=== PATIENT | female | born 1985 | race Caucasian/White ===

== ENCOUNTER 2018-10-09 17:44 | Observation (INO) | payer MEDICAID, SELFPAY ==
[2018-10-09 18:17] VITALS: BMI 35.1
[2018-10-09 18:18] VITALS: BP 122/73; PULSE 88; RESP 16; TEMP 36.6; O2SAT 98
--- NOTE | 2018-10-09 18:19 | PCM.HP.STD ---
Problem List (1) Acute opioid withdrawal Status: Acute (2) Heroin abuse Status: Acute (3) Nicotine dependence Status: Acute (4) Cellulitis of right hand Status: Acute (5) Depression Status: Chronic Qualifiers: Depression Type: unspecified Qualified Code(s): F32.9 - Major depressive disorder, single episode, unspecified History of Present Illness Date of Admission: 10/09/18 Chief Complaint: Acute opiate withdrawal The patient is a 33 year old F past medical history of anxiety/depression, borderline personality disorder, heroin dependence, nicotine dependence, comes in with complaints of acute opioid withdrawal with hot and cold flashes as well as nausea and vomiting. Patient admits to using 1 g of heroin IV every day, last used heroin on 10/08/18. Sent for medical stabilization and [facility]. Her admitting CINA score is 16. Patient admits to be having surgery of the right hand for possible abscess on 10/04/18. She has a wound dressing and she is on Augmentin p.o. She denied any fever or chills. Vitals on admission are T 98F, HR 88, BP 122/73, RR 16, SpO2 98% on room air. Past Medical History Past Medical History (Chronic Problems): Chronic Problems Depression (Chronic) Home Medications: Ambulatory Orders Medication Instructions Recorded Amitriptyline HCl 2 tab PO QHS 10/09/18 Amoxicillin/Potassium Clav [Amox 1 each PO Q8H 10/09/18 Tr-K Clv 875-125 mg Tab] Surgical History: - - recent surgery to right hand Psychiatric History: Anxiety, Depression [employer] History: No pertinent [employer] history Lives: With Family Smoking Status: Current every day smoker Tobacco Use: Cigarettes Alcohol: None Drugs: Heroin - *Family History Maternal History Items: No pertinent history Paternal History Items: No pertinent history Review of Systems Constitutional: Reports: Anorexia, Chills, Fever, Weakness, Fatigue. Denies: Night Sweats, Weight Change Eyes: Denies: Blurred vision, Cataracts, Conjunctivae Inflammation, Pain, Redness, Vision Change HEENT: Denies: Difficulty Hearing, Difficulty Swallowing, Head Aches, Hearing Changes, Sinus Congestion, Sinus Drainage, Sore Throat Cardiovascular: Denies: Chest Pain, Claudication, Orthopnea, Palpitations, Paroxysmal Noc. Dyspnea Respiratory: Denies: Cough, Hemoptysis, Shortness of breath at rest, Shortness of breath upon exertion, Sputum production Gastrointestinal: Denies: Abdominal Pain, Hematochezia, Nausea, Vomiting Genitourinary: Denies: Dysuria, Frequency, Incontinence Musculoskeletal: Denies: Joint Pain, Joint stiffness, Joint swelling, Joint Tenderness Skin: Reports: - - Dressing over the right hand. Denies: Pruritis, Rash, Wounds Neurological: Denies: Difficulty swallowing, Focal weakness, Numbness, Tingling Psychiatric: Denies: Anxiety, Depression, Homicidal Ideations, Suicidal Ideations Hematologic/ Lymphatic: Denies: Easy Bruising, Easy Bleeding VTE Information - Inpt Only VTE Present on Admission: No VTE Pharm Prophylaxis ordered?: Yes Patient Problems: Active and Suspected Problems Acute opioid withdrawal (Acute) Heroin abuse (Acute) Nicotine dependence (Acute) Cellulitis of right hand (Acute) - Physical Exam General: Alert, Oriented x3, Cooperative, No apparent distress, - - sleepy, appears comfortable HEENT: Atraumatic, PERRLA, EOMI, Normocephalic Oral: Moist Mucosa Neck: Supple, No JVD, Negative Carotid Bruits Lungs: Clear to auscultation, Normal air movement Cardiovascular: Regular rate, Regular Rhythm, Normal S1, Normal S2, No murmurs Abdomen: Bowel Sounds Present, Soft, Non Tender, Non-Distended, No Hepato-splenomegaly Extremities: No edema, - - Right hand is swollen, multiple incisions on the dorsum of the hand, about 4, packing seen in 4 of the incisions, incision on the plantar surface of the right middle finger, no packing seen, slight seropurulent discharge seen Skin: No rashes, No breakdown Musculoskeletal: No Tenderness to Palpation of Joints or Extremities Lymphatic: No Cervical, Supraclavicular, or Inguinal Adenopathy Neurological: Cranial nerves II-XII grossly intact, Neuro grossly intact Psych/Mental Status: Normal Affect, Appropriate Vital Signs Temp Pulse Resp BP Pulse Ox 98 F 88 16 122/73 H 98 10/09/18 18:18 10/09/18 18:18 10/09/18 18:18 10/09/18 18:18 10/09/18 18:18 Oxygen Delivery Method Room Air Assessment/Plan All Active Problems Acute opioid withdrawal (Acute) Heroin abuse (Acute) Nicotine dependence (Acute) Cellulitis of right hand (Acute) 33 year old F past medical history of anxiety/depression, borderline personality disorder, heroin dependence, nicotine dependence, comes in with complaints of acute opioid withdrawal with hot and cold flashes as well as nausea and vomiting. 1. Acute opiate withdrawal, h/o heroin use, admitting CINA score is 16, stable vitals Plan: Admit to MedSurg floor, continue management per [facility] protocol, continue to monitor vitals closely 2. Nicotine dependence, will put on nicotine patch and gum 3. Right hand cellulitis, status post I&D, continue on augmentin, wound nurse consult in am. Patient may require consult with a hand surgeon if cellulitis gets worse. Obtain records from [facility] where she had her hand surgery done on 10/04/18 4. Anxiety/depression/borderline personality disorder, on amitriptyline 5. DVT PPx- early ambulation Code Visit Inpatient E&M: 29169 Init Hosp L3
--- NOTE | 2018-10-09 18:28 | NURSING ---
Addendum entered by Bella Cline 10/09/18 18:51: Dr. De Leon notified of this- holding subutex at this time- for tox screen to be obtained. Dressing to right hand from surgery- pt refused to have open by this RN. Dr. De Leon requested it to be opened. pt refusing to wear gown and refusing labs- states must have PICC if want labs. Original Note: Upon entry in room pt resting snoring softly with eyes closed- very drowsy. Falling alseep during entire assmt- and becoming agitated with admission questions.
[2018-10-09 18:47] VITALS: BP 122/73; PULSE 88; RESP 16; TEMP 36.6
[2018-10-09] MEDS: Buprenorphine HCl 2 MG TAB.SUBL SL (19:38)
[2018-10-09 22:25] VITALS: BP 154/94; PULSE 84; RESP 16; TEMP 37
[2018-10-09] MEDS: Amitriptyline 100 MG Tablet 200 MG PO (22:27)
[2018-10-09] MEDS: Amox/Clavulanate 875 MG Tablet PO (22:27)
[2018-10-09] MEDS: cloNIDine HCl 0.1 MG Tablet PO (22:27)
[2018-10-09] MEDS: traZODone 50 MG Tablet PO (22:28)
[2018-10-09 23:27] LABS: Amphetamine Urine VISTA NEGATIVE (<1000 ng/mL); Barbiturate Urine VISTA NEGATIVE (< 200 ng/mL); Benzodiazepine Urine VISTA NEGATIVE (< 200 ng/mL); Cocaine Urine VISTA NEGATIVE (< 300 ng/mL); Ecstacy Urine VISTA NEGATIVE (< 500 ng/mL); Methadone Urine VISTA NEGATIVE (< 300 ng/mL); PCP Urine VISTA NEGATIVE (< 25 ng/mL); THC Urine VISTA NEGATIVE (< 50 ng/mL); Vista UDS pH Range 6
[2018-10-09 23:30] LABS: Internal QC Validated? YES +Cl - CLEAR BKGD
[2018-10-09 23:31] LABS: Pregnancy, Urine Negative Negative
[2018-10-10] MEDS: Buprenorphine HCl 2 MG TAB.SUBL SL ×3 (02:13→18:14)
[2018-10-10 02:16] VITALS: BP 109/86; PULSE 87; RESP 16; TEMP 36.9
[2018-10-10] MEDS: Amox/Clavulanate 875 MG Tablet PO ×3 (06:25→22:21)
[2018-10-10 06:29] VITALS: BP 139/87; PULSE 73; RESP 16; TEMP 36.3
[2018-10-10 09:42] VITALS: BP 130/83; PULSE 80; RESP 18; TEMP 36.5
--- NOTE | 2018-10-10 10:30 | PCM.PN.HOSP ---
Patient Problems: Active and Suspected Problems Acute opioid withdrawal (Acute) Heroin abuse (Acute) Nicotine dependence (Acute) Cellulitis of right hand (Acute) Subjective: Feeling better. Decreased pain in right hand. Vitals/I&O's: Vital Signs Temp Pulse Resp BP Pulse Ox 36.5 C L 80 18 130/83 H 98 10/10/18 09:42 10/10/18 09:42 10/10/18 09:42 10/10/18 09:42 10/09/18 18:18 Oxygen Delivery Method Room Air Weight: 101.7 kg Body Mass Index (BMI) 35.1 Intake and Output for Last 24 Hours 10/08/18 10/09/18 10/10/18 23:59 23:59 23:59 Intake Total 400 / 400 200 / 200 Balance 400 / 400 200 / 200 General: Alert, No apparent distress HEENT: Atraumatic, Normocephalic Extremities: - - right hand bandaged, did not remove. Psych/Mental Status: Normal Affect, Appropriate Laboratory Results 10/09/18 22:30: Urine Opiates Screen POSITIVE H, Urine Methadone Screen NEGATIVE, Ur Barbiturates Screen NEGATIVE, Ur Phencyclidine Scrn NEGATIVE, Ur Amphetamines Screen NEGATIVE, U Methamphetamin-MDMA NEGATIVE, U Benzodiazepines Scrn NEGATIVE, Urine Cocaine Screen NEGATIVE, U Cannabinoids Screen NEGATIVE, Ur Drug Screen Comment 10/09/18 22:30: Urine Test Negative Current Medications Acetaminophen (Tylenol) 650 mg PO Q6H PRN PRN PRN Reason: Mild Pain (1-3)/Temp > 100.7 F Amitriptyline HCl (Elavil) 200 mg PO QHS [facility] Last Admin: 10/09/18 22:27 Dose: 200 mg Amoxicillin/Clavulanate Potassium (Augmentin Tablet) 875 mg PO Q8 [facility] Last Admin: 10/10/18 06:25 Dose: 875 mg Bisacodyl (Dulcolax) 5 mg PO DAILY PRN PRN PRN Reason: Constipation Buprenorphine HCl (Buprenorphine Hcl) 4 mg SL Q8H [facility]; Taper Stop: 10/12/18 22:14 Last Admin: 10/10/18 09:51 Dose: 4 mg Clonidine (Catapres) 0.1 mg PO Q2H PRN PRN PRN Reason: Hot/Cold Sweats or Anxiety Last Admin: 10/09/18 22:27 Dose: 0.1 mg Dicyclomine HCl (Bentyl) 20 mg PO Q6H PRN PRN PRN Reason: Abdomnial Discomfort Hydroxyzine Pamoate (Vistaril Pamoate Capsule) 50 mg PO Q6H PRN PRN PRN Reason: Mild Anxiety Ibuprofen (Motrin) 600 mg PO Q8H PRN PRN PRN Reason: Mild-Moderate Pain (1-5/10) Loperamide HCl (Imodium) 2 - 4 mg PO UD PRN PRN Reason: LOOSE STOOLS Magnesium Hydroxide (Milk Of Magnesia) 30 ml PO DAILY PRN PRN PRN Reason: Constipation Methocarbamol (Methocarbamol) 750 mg PO Q6H PRN PRN PRN Reason: Muscle Aches Nicotine (Nicoderm Cq (Pbkc)) 21 mg TRANSDERM. DAILY [facility] Last Admin: 10/10/18 09:51 Dose: 21 mg Nutritional Formula (Lactose Free) (Ensure Enlive) 120 ml PO 4X/DAY [facility] Last Admin: 10/10/18 09:48 Dose: Not Given Ondansetron HCl (Zofran Odt) 4 mg PO Q6H PRN PRN PRN Reason: NAUSEA Pramipexole Dihydrochloride (Mirapex) 0.25 mg PO Q12H PRN PRN PRN Reason: Restless Legs Psyllium Hydrophilic Mucilloid (Metamucil) 1 packet PO DAILY PRN PRN PRN Reason: CONSTIPATION Trazodone HCl (Desyrel) 50 mg PO QHS [facility] Last Admin: 10/09/18 22:28 Dose: 50 mg Medical Necessity - Tobacco Use Smoking Status: Current every day smoker Tobacco Use: Cigarettes Assessment/Plan All Active Problems Acute opioid withdrawal (Acute) Heroin abuse (Acute) Nicotine dependence (Acute) Cellulitis of right hand (Acute) 1. Acute heroin withdrawal Continue buprenorphine taper. Additionally continue with medications to help with other somatic symptoms associated with her withdrawal. Taper will be completed on the morning of the . Patient states that her family working on trying to find an outpatient facility for her. 2. Right hand cellulitis Status post I&D Augmentin Wound care Code Visit Inpatient E&M: 29119 Subs Hosp L1
--- NOTE | 2018-10-10 10:34 | PN_ITS ---
Patient Problems: Active and Suspected Problems Acute opioid withdrawal (Acute) Heroin abuse (Acute) Nicotine dependence (Acute) Cellulitis of right hand (Acute) Subjective: Feeling better. Decreased pain in right hand. Vitals/I&O's: Vital Signs Temp Pulse Resp BP Pulse Ox 36.5 C L 80 18 130/83 H 98 10/10/18 09:42 10/10/18 09:42 10/10/18 09:42 10/10/18 09:42 10/09/18 18:18 Oxygen Delivery Method Room Air Weight: 101.7 kg Body Mass Index (BMI) 35.1 Intake and Output for Last 24 Hours 10/08/18 10/09/18 10/10/18 23:59 23:59 23:59 Intake Total 400 / 400 200 / 200 Balance 400 / 400 200 / 200 General: Alert, No apparent distress HEENT: Atraumatic, Normocephalic Extremities: - - right hand bandaged, did not remove. Psych/Mental Status: Normal Affect, Appropriate Laboratory Results 10/09/18 22:30: Urine Opiates Screen POSITIVE H, Urine Methadone Screen NEGATIVE, Ur Barbiturates Screen NEGATIVE, Ur Phencyclidine Scrn NEGATIVE, Ur Amphetamines Screen NEGATIVE, U Methamphetamin-MDMA NEGATIVE, U Benzodiazepines Scrn NEGATIVE, Urine Cocaine Screen NEGATIVE, U Cannabinoids Screen NEGATIVE, Ur Drug Screen Comment 10/09/18 22:30: Urine Test Negative Current Medications Acetaminophen (Tylenol) 650 mg PO Q6H PRN PRN PRN Reason: Mild Pain (1-3)/Temp > 100.7 F Amitriptyline HCl (Elavil) 200 mg PO QHS [facility] Last Admin: 10/09/18 22:27 Dose: 200 mg Amoxicillin/Clavulanate Potassium (Augmentin Tablet) 875 mg PO Q8 [facility] Last Admin: 10/10/18 06:25 Dose: 875 mg Bisacodyl (Dulcolax) 5 mg PO DAILY PRN PRN PRN Reason: Constipation Buprenorphine HCl (Buprenorphine Hcl) 4 mg SL Q8H [facility]; Taper Stop: 10/12/18 22:14 Last Admin: 10/10/18 09:51 Dose: 4 mg Clonidine (Catapres) 0.1 mg PO Q2H PRN PRN PRN Reason: Hot/Cold Sweats or Anxiety Last Admin: 10/09/18 22:27 Dose: 0.1 mg Dicyclomine HCl (Bentyl) 20 mg PO Q6H PRN PRN PRN Reason: Abdomnial Discomfort Hydroxyzine Pamoate (Vistaril Pamoate Capsule) 50 mg PO Q6H PRN PRN PRN Reason: Mild Anxiety Ibuprofen (Motrin) 600 mg PO Q8H PRN PRN PRN Reason: Mild-Moderate Pain (1-5/10) Loperamide HCl (Imodium) 2 - 4 mg PO UD PRN PRN Reason: LOOSE STOOLS Magnesium Hydroxide (Milk Of Magnesia) 30 ml PO DAILY PRN PRN PRN Reason: Constipation Methocarbamol (Methocarbamol) 750 mg PO Q6H PRN PRN PRN Reason: Muscle Aches Nicotine (Nicoderm Cq (Pbkc)) 21 mg TRANSDERM. DAILY [facility] Last Admin: 10/10/18 09:51 Dose: 21 mg Nutritional Formula (Lactose Free) (Ensure Enlive) 120 ml PO 4X/DAY [facility] Last Admin: 10/10/18 09:48 Dose: Not Given Ondansetron HCl (Zofran Odt) 4 mg PO Q6H PRN PRN PRN Reason: NAUSEA Pramipexole Dihydrochloride (Mirapex) 0.25 mg PO Q12H PRN PRN PRN Reason: Restless Legs Psyllium Hydrophilic Mucilloid (Metamucil) 1 packet PO DAILY PRN PRN PRN Reason: CONSTIPATION Trazodone HCl (Desyrel) 50 mg PO QHS [facility] Last Admin: 10/09/18 22:28 Dose: 50 mg Medical Necessity - Tobacco Use Smoking Status: Current every day smoker Tobacco Use: Cigarettes Assessment/Plan All Active Problems Acute opioid withdrawal (Acute) Heroin abuse (Acute) Nicotine dependence (Acute) Cellulitis of right hand (Acute) 1. Acute heroin withdrawal Continue buprenorphine taper. Additionally continue with medications to help with other somatic symptoms associated with her withdrawal. Taper will be completed on the morning of the . Patient states that her family working on trying to find an outpatient facility for her. 2. Right hand cellulitis Status post I&D Augmentin Wound care Code Visit Inpatient E&M: 97074 Subs Hosp L1
[2018-10-10] MEDS: Ibuprofen 600 MG Tablet PO (11:41)
--- NOTE | 2018-10-10 12:11 | NURSING ---
wound photo: right hand
--- NOTE | 2018-10-10 12:11 | NURSING ---
wound photo: right hand
[2018-10-10 13:48] VITALS: BP 124/70; PULSE 79; RESP 16; TEMP 37.1
[2018-10-10 18:10] VITALS: BP 128/72; PULSE 80; RESP 16; TEMP 36.4
[2018-10-10 22:00] VITALS: BP 142/88; PULSE 84; RESP 16; TEMP 36.4
[2018-10-10] MEDS: Amitriptyline 100 MG Tablet 200 MG PO (22:21)
[2018-10-10] MEDS: Mag Hydrox/Al Hydrox/Simeth 30 ML UDC PO (22:21)
[2018-10-10] MEDS: traZODone 50 MG Tablet PO (22:21)
[2018-10-11 02:00] VITALS: BP 138/80; PULSE 82; RESP 16; TEMP 36.8
[2018-10-11] MEDS: Buprenorphine HCl 2 MG TAB.SUBL SL ×3 (02:53→22:04)
[2018-10-11] MEDS: Amox/Clavulanate 875 MG Tablet PO ×3 (06:03→22:05)
--- NOTE | 2018-10-11 09:22 | PCM.PN.HOSP ---
Patient Problems: Active and Suspected Problems Acute opioid withdrawal (Acute) Heroin abuse (Acute) Nicotine dependence (Acute) Cellulitis of right hand (Acute) Subjective: Sleepy. Denies any new complaints. Vitals/I&O's: Vital Signs Temp Pulse Resp BP Pulse Ox 36.8 C 82 16 138/80 H 98 10/11/18 02:00 10/11/18 02:00 10/11/18 02:00 10/11/18 02:00 10/09/18 18:18 Oxygen Delivery Method Room Air Weight: 101.7 kg Body Mass Index (BMI) 35.1 Intake and Output for Last 24 Hours 10/09/18 10/10/18 10/11/18 23:59 23:59 23:59 Intake Total 400 / 400 500 / 500 500 / 500 Balance 400 / 400 500 / 500 500 / 500 General: Alert, No apparent distress, - - keeps blanket over eyes. no eye contact. HEENT: Atraumatic, Normocephalic Oral: Moist Mucosa, No Gingival or Mucosal Lesions/ Ulcerations Neck: No Nodes, Thyroid Normal Size and Texture Lungs: Clear to auscultation, Normal air movement, No rhonchi, No wheeze Cardiovascular: Regular rate, Regular Rhythm, Normal S1, Normal S2, No murmurs Abdomen: Bowel Sounds Present, Soft, Non Tender, Non-Distended Extremities: - - Would not allow me to look at her right hand as it is bandaged. I reviewed the images from the wound care nurses pitcher and shows some openings on the dorsum of her right hand that were clean based also an opening on her right index finger that appear to be clean some macerationover her right pinky finger. Psych/Mental Status: Flat Affect Current Medications Acetaminophen (Tylenol) 650 mg PO Q6H PRN PRN PRN Reason: Mild Pain (1-3)/Temp > 100.7 F Al Hydroxide/Mg Hydroxide (Mylanta Ii) 30 ml PO Q6H PRN PRN PRN Reason: Acid Reflux Last Admin: 10/10/18 22:21 Dose: 30 ml Amitriptyline HCl (Elavil) 200 mg PO QHS [facility] Last Admin: 10/10/18 22:21 Dose: 200 mg Amoxicillin/Clavulanate Potassium (Augmentin Tablet) 875 mg PO Q8 [facility] Last Admin: 10/11/18 06:03 Dose: 875 mg Bisacodyl (Dulcolax) 5 mg PO DAILY PRN PRN PRN Reason: Constipation Buprenorphine HCl (Buprenorphine Hcl) 2 mg SL Q8H [facility]; Taper Stop: 10/12/18 22:14 Last Admin: 10/11/18 02:53 Dose: 2 mg Clonidine (Catapres) 0.1 mg PO Q2H PRN PRN PRN Reason: Hot/Cold Sweats or Anxiety Last Admin: 10/09/18 22:27 Dose: 0.1 mg Dicyclomine HCl (Bentyl) 20 mg PO Q6H PRN PRN PRN Reason: Abdomnial Discomfort Hydroxyzine Pamoate (Vistaril Pamoate Capsule) 50 mg PO Q6H PRN PRN PRN Reason: Mild Anxiety Ibuprofen (Motrin) 600 mg PO Q8H PRN PRN PRN Reason: Mild-Moderate Pain (1-5/10) Last Admin: 10/10/18 11:41 Dose: 600 mg Loperamide HCl (Imodium) 2 - 4 mg PO UD PRN PRN Reason: LOOSE STOOLS Magnesium Hydroxide (Milk Of Magnesia) 30 ml PO DAILY PRN PRN PRN Reason: Constipation Methocarbamol (Methocarbamol) 750 mg PO Q6H PRN PRN PRN Reason: Muscle Aches Nicotine (Nicoderm Cq (Pbkc)) 21 mg TRANSDERM. DAILY [facility] Last Admin: 10/10/18 09:51 Dose: 21 mg Ondansetron HCl (Zofran Odt) 4 mg PO Q6H PRN PRN PRN Reason: NAUSEA Pramipexole Dihydrochloride (Mirapex) 0.25 mg PO Q12H PRN PRN PRN Reason: Restless Legs Psyllium Hydrophilic Mucilloid (Metamucil) 1 packet PO DAILY PRN PRN PRN Reason: CONSTIPATION Trazodone HCl (Desyrel) 50 mg PO QHS [facility] Last Admin: 10/10/18 22:21 Dose: 50 mg Medical Necessity - Tobacco Use Smoking Status: Current every day smoker Tobacco Use: Cigarettes Assessment/Plan All Active Problems Acute opioid withdrawal (Acute) Heroin abuse (Acute) Nicotine dependence (Acute) Cellulitis of right hand (Acute) 1. Acute heroin withdrawal Continue buprenorphine taper. Additionally continue with medications to help with other somatic symptoms associated with her withdrawal. Taper will be completed on the morning of the ninth. Patient states that her family working on trying to find an outpatient facility for her. Patient seems very apathetic. Patient is unaware where she will be going after she has completed her treatment here. States that her parents are facilitating an outpatient facility for her. Given the patient's apathy and not taking any initiative then coming to this program, I am very concerned that the patient's long-term outlook in regards to quitting unfortunately, feel that the patient is going to fail in regards to her recovery as she does not seem to be invested at this time. 2. Right hand cellulitis Status post I&D Augmentin Wound care Code Visit Inpatient E&M: 33048 Subs Hosp L2
[2018-10-11 10:00] VITALS: BP 142/85; PULSE 87; RESP 16; TEMP 36.8
--- NOTE | 2018-10-11 12:38 | NEWVISION ---
Patient to continue working with [facility] [employer] through the [place] [employer] for sober support and residential housing. Patient will be transported by her father.
[2018-10-11] MEDS: Ibuprofen 600 MG Tablet PO (15:05)
[2018-10-11 16:32] VITALS: BP 125/107; PULSE 81; RESP 16; TEMP 36.4
[2018-10-11 19:35] VITALS: BP 150/86; PULSE 76; RESP 16; TEMP 36.8; O2SAT 98
[2018-10-11] MEDS: traZODone 50 MG Tablet PO (22:04)
[2018-10-11] MEDS: Amitriptyline 100 MG Tablet 200 MG PO (22:05)
[2018-10-12] MEDS: Amox/Clavulanate 875 MG Tablet PO (05:46)
[2018-10-12 05:48] VITALS: BP 150/84; PULSE 77; RESP 16; TEMP 36.4; O2SAT 98
--- NOTE | 2018-10-12 08:58 | DCINST_ITS ---
- Discharge Diagnoses Current Active Problems: Current Active and Chronic Problems Acute opioid withdrawal (Acute) Heroin abuse (Acute) Nicotine dependence (Acute) Cellulitis of right hand (Acute) Depression (Chronic) Reason(s) for Visit for Discharge Instructions: Hand swelling, opiate withdrawal You will use the following diet at home:: Regular Your food should be the consistency of: Regular Your liquids should be the consistency of: Regular/Thin Discharge Activity: Return to Normal Activity Keep extremity elevated above heart level: - - Right hand Call your doctor if your incision/area has: Increased Pain/ Swelling, Increased Redness, Foul Smelling Discharge Call your doctor if you observe: Fever of 101 or Higher, Coldness, Increased Pain, Numbness or Tingling, Change in Color Additional Dressing/Incision Instructions:: Daily wound dressing per instructions given by wound nurse Additional Instructions: Continue to keep your right hand elevated. Complete your antibiotics. You need to follow-up with a hand surgeon within 1-2 weeks. Continue to exercise your hand. Abstain from using any illicit drugs. Follow-up with your outpatient program as planned. Allergies/Adverse Reactions: Allergies No Known Allergies Allergy (Verified 10/09/18 18:39) Medications to take at Discharge Amitriptyline HCl 2 tab PO QHS 10/09/18 Amoxicillin/Potassium Clav [Amox-Clav 875-125 mg Tablet] 1 ea PO BID #10 tab 10/12/18 The following prescriptions were given: Amoxicillin/Potassium Clav [Amox-Clav 875-125 mg Tablet] 1 ea PO BID #10 tab Test Results: Test results from this visit will be discussed in further detail at your follow- up appointment, if applicable. Proposed Discharge Date: 10/12/18
--- NOTE | 2018-10-12 09:00 | PCM.DC.SUM ---
Discharge Date and Diagnosis Date of Admission: 10/09/18 Date of Discharge: 10/12/18 - Primary Discharge Diagnosis Active and Suspected Problems Acute opioid withdrawal (Acute) Heroin abuse (Acute) Nicotine dependence (Acute) Cellulitis of right hand (Acute) - Secondary Discharge Diagnosis Chronic Problems Depression (Chronic) Hospital Course and Treatment Consultations 10/09/18 18:55 Consult: Onc/Wound/sales ledger clerk Routine Comment: Operations: None Procedures: None Summary of Care Provided: 33 year old F past medical history of anxiety/depression, borderline personality disorder, heroin dependence, nicotine dependence, comes in with complaints of acute opioid withdrawal with hot and cold flashes as well as nausea and vomiting. Her management was as follows: 1. Acute opiate withdrawal, h/o heroin use, admitted and managed under the [facility] protocol with improvement. 2. Nicotine dependence, managed with nicotine replacement 3. Right hand cellulitis, status post I&D done in [facility], continued on augmentin, wound nurse consulted. She was recommended strongly to follow-up with a hand surgeon or wound center for follow-up of current state of her wounds. She was asked to complete her antibiotics also. 4. Anxiety/depression/borderline personality disorder, on amitriptyline Subjective: On the day of discharge, she had no new complaints. Eager to be discharged. She is going to follow-up with an outpatient program in [place]. Denies any fever or chills. - Physical Exam General: Alert, Oriented x3, Cooperative, No apparent distress HEENT: Atraumatic, PERRLA, EOMI, Normocephalic Neck: Supple, No JVD, Negative Carotid Bruits Lungs: Clear to auscultation, Normal air movement Cardiovascular: Regular rate, Regular Rhythm, Normal S1, Normal S2, No murmurs Abdomen: Bowel Sounds Present, Soft, Non Tender, Non-Distended, No Hepato-splenomegaly Extremities: No edema, - - Right hand in ALBERTO wraps. Swollen fingers, worse in the 5th finger with area of erythema or briusing, able to wiggle fingers. Skin: No rashes, No breakdown Musculoskeletal: No Tenderness to Palpation of Joints or Extremities Lymphatic: No Cervical, Supraclavicular, or Inguinal Adenopathy Neurological: Cranial nerves II-XII grossly intact, Neuro grossly intact Psych/Mental Status: Normal Affect, Appropriate Vital Signs Temp Pulse Resp BP Pulse Ox 97.6 F L 77 16 150/84 H 98 10/12/18 05:48 10/12/18 05:48 10/12/18 05:48 10/12/18 05:48 10/12/18 05:48 Oxygen Delivery Method Room Air Weight: 101.7 kg Body Mass Index (BMI) 35.1 Intake and Output for Last 24 Hours 10/10/18 10/11/18 10/12/18 23:59 23:59 23:59 Intake Total 500 / 500 500 / 500 Balance 500 / 500 500 / 500 Discharge Diet: No Restrictions Discharge Activity: Return to Normal Activity Keep extremity elevated above heart level: - - Right hand Call your doctor if your incision/area has: Increased Pain/ Swelling, Increased Redness, Foul Smelling Discharge Call your doctor if you observe: Fever of 101 or Higher, Coldness, Increased Pain, Numbness or Tingling, Change in Color Additional Dressing/Incision Instructions:: Daily wound dressing per instructions given by wound nurse Home Medications: Medications to take at Discharge Amitriptyline HCl 2 tab PO QHS 10/09/18 Amoxicillin/Potassium Clav [Amox-Clav 875-125 mg Tablet] 1 ea PO BID #10 tab 10/12/18 Following Prescrptions Were Given to Patient: Amoxicillin/Potassium Clav [Amox-Clav 875-125 mg Tablet] 1 ea PO BID #10 tab Disposition: Home Minutes spent on discharge:: 40 Patient Condition:: Stable Medical Necessity - Tobacco Use Smoking Status: Current every day smoker Tobacco Use: Cigarettes Meaningful Use Info Meaningful Use Diagnoses (Choose all that apply): None applicable Code Visit Inpatient E&M: 29359 Disch Hosp
--- NOTE | 2018-10-12 09:03 | DS.PCM_ITS ---
Discharge Date and Diagnosis Date of Admission: 10/09/18 Date of Discharge: 10/12/18 - Primary Discharge Diagnosis Active and Suspected Problems Acute opioid withdrawal (Acute) Heroin abuse (Acute) Nicotine dependence (Acute) Cellulitis of right hand (Acute) - Secondary Discharge Diagnosis Chronic Problems Depression (Chronic) Hospital Course and Treatment Consultations 10/09/18 18:55 Consult: Onc/Wound/conditioning room worker Routine Comment: Operations: None Procedures: None Summary of Care Provided: 33 year old F past medical history of anxiety/depression, borderline personality disorder, heroin dependence, nicotine dependence, comes in with complaints of acute opioid withdrawal with hot and cold flashes as well as nausea and vomiting. Her management was as follows: 1. Acute opiate withdrawal, h/o heroin use, admitted and managed under the [facility] protocol with improvement. 2. Nicotine dependence, managed with nicotine replacement 3. Right hand cellulitis, status post I&D done in [facility], continued on augmentin, wound nurse consulted. She was recommended strongly to follow-up with a hand surgeon or wound center for follow-up of current state of her wounds. She was asked to complete her antibiotics also. 4. Anxiety/depression/borderline personality disorder, on amitriptyline Subjective: On the day of discharge, she had no new complaints. Eager to be discharged. She is going to follow-up with an outpatient program in [place]. Denies any fever or chills. - Physical Exam General: Alert, Oriented x3, Cooperative, No apparent distress HEENT: Atraumatic, PERRLA, EOMI, Normocephalic Neck: Supple, No JVD, Negative Carotid Bruits Lungs: Clear to auscultation, Normal air movement Cardiovascular: Regular rate, Regular Rhythm, Normal S1, Normal S2, No murmurs Abdomen: Bowel Sounds Present, Soft, Non Tender, Non-Distended, No Hepato- splenomegaly Extremities: No edema, - - Right hand in ALBERTO wraps. Swollen fingers, worse in the 5th finger with area of erythema or briusing, able to wiggle fingers. Skin: No rashes, No breakdown Musculoskeletal: No Tenderness to Palpation of Joints or Extremities Lymphatic: No Cervical, Supraclavicular, or Inguinal Adenopathy Neurological: Cranial nerves II-XII grossly intact, Neuro grossly intact Psych/Mental Status: Normal Affect, Appropriate Vital Signs Temp Pulse Resp BP Pulse Ox 97.6 F L 77 16 150/84 H 98 10/12/18 05:48 10/12/18 05:48 10/12/18 05:48 10/12/18 05:48 10/12/18 05:48 Oxygen Delivery Method Room Air Weight: 101.7 kg Body Mass Index (BMI) 35.1 Intake and Output for Last 24 Hours 10/10/18 10/11/18 10/12/18 23:59 23:59 23:59 Intake Total 500 / 500 500 / 500 Balance 500 / 500 500 / 500 Discharge Diet: No Restrictions Discharge Activity: Return to Normal Activity Keep extremity elevated above heart level: - - Right hand Call your doctor if your incision/area has: Increased Pain/ Swelling, Increased Redness, Foul Smelling Discharge Call your doctor if you observe: Fever of 101 or Higher, Coldness, Increased Pain, Numbness or Tingling, Change in Color Additional Dressing/Incision Instructions:: Daily wound dressing per instructions given by wound nurse Home Medications: Medications to take at Discharge Amitriptyline HCl 2 tab PO QHS 10/09/18 Amoxicillin/Potassium Clav [Amox-Clav 875-125 mg Tablet] 1 ea PO BID #10 tab 10/12/18 Following Prescrptions Were Given to Patient: Amoxicillin/Potassium Clav [Amox-Clav 875-125 mg Tablet] 1 ea PO BID #10 tab Disposition: Home Minutes spent on discharge:: 40 Patient Condition:: Stable Medical Necessity - Tobacco Use Smoking Status: Current every day smoker Tobacco Use: Cigarettes Meaningful Use Info Meaningful Use Diagnoses (Choose all that apply): None applicable Code Visit Inpatient E&M: 80340 Disch Hosp
[2018-10-12] MEDS: Buprenorphine HCl 2 MG TAB.SUBL SL (09:19)
--- NOTE | 2018-10-12 09:43 | NURSING ---
TEXT SENT TO DR MARQUEZ MAKING HER AWARE PT IS REFUSING AM LABWORK
[2018-10-12 10:00] VITALS: BP 131/81; PULSE 88; RESP 18; TEMP 36.8
[2018-10-12 10:05] VITALS: BP 131/81; PULSE 88; RESP 18; TEMP 36.8; O2SAT 97
--- NOTE | 2018-10-12 10:14 | NURSING ---
SPOKE WITH DR MARQUEZ REGARDING PT REFUSING ORDERED LABS PRIOR TO DC. NO NEW ORDER.
[2018-10-12 10:35] VITALS: BP 131/81; PULSE 88; RESP 18; TEMP 36.8; O2SAT 97
== END 2018-10-12 10:35 | disposition home or self-care (01) | DRG 773 ==
PROVIDERS: Hospitalist; Admitting Provider Internal Medicine; Family Provider Internal Medicine
DX: F11.23 Opioid dependence with withdrawal (principal); L03.113 Cellulitis of right upper limb; F17.210 Nicotine dependence, cigarettes, uncomplicated; F60.3 Borderline personality disorder; F32.9 Major depressive disorder, single episode, unspecified; F41.9 Anxiety disorder, unspecified
CPT/HCPCS: 80307; 81025; 97802; 99218; 99406; G0378; G0379